=== PATIENT | male | born 1940 | race Caucasian/White ===

== ENCOUNTER 2019-12-23 07:40 | Day surgery (SDC) | payer MEDICARE, OTHER ==
[~2019-12-23] VITALS: Ht 177.8 cm; Wt 101.3 kg
[2019-12-23 08:28] VITALS: Ht 177.8 cm; Wt 101.3 kg
--- NOTE | 2019-12-23 09:16 | NUR ---
899-VERIFIED NO DOSE OF ANTIBIOTICS REQUIRED/ORDERED. 904-DISCHARGE INSTRUCTIONS REVIEWED. 909-TOTAL LIFT TO WHEELCHAIR WITH ASSIST X 4. 912-D/C VIA WHEELCHAIR TO [place] WITH ATTENDANT.
== END 2019-12-23 09:13 | disposition home or self-care (01) ==
LOC: D.OPS 07:40
PROVIDERS: ATTEND Family Medicine
DX: B96.5 Pseudomonas (aeruginosa) (mallei) (pseudomallei) as the cause of diseases classified elsewhere (principal)